=== PATIENT | male | born 1990 | race Caucasian/White ===

== ENCOUNTER 2020-09-17 13:06 | Emergency (ER) | payer SELFPAY ==
[2020-09-17 13:10] VITALS: BP 121/87; PULSE 94; RESP 18; TEMP 36.6; O2SAT 96; BMI 21.2
--- NOTE | 2020-09-17 13:16 | XR_ITS ---
PROCEDURE INFORMATION: Exam: XR Left Ankle Exam date and time: 09/17/2020 1:16 PM Age: 30 years old Clinical indication: Injury or trauma; Fall; Blunt trauma; Patient HX: PT twisted left ankle last night. ; Additional info: Pain TECHNIQUE: Imaging protocol: XR Left ankle. Views: 3 or more views. COMPARISON: No relevant prior studies available. FINDINGS: Bones/joints: Lateral malleolar soft tissue swelling; There is no evidence of acute fracture.There is no evidence of malalignment or dislocation. Soft tissues: See Bones/joints finding. IMPRESSION: There is no evidence of acute fracture.There is no evidence of malalignment or dislocation.
[2020-09-17 13:30] VITALS: BP 121/87; PULSE 94; RESP 18; TEMP 36.6; O2SAT 96; BMI 21.2
--- NOTE | 2020-09-17 14:02 | HMH.EDUTC ---
[facility] [place] Clinical Impression: Ankle sprain Qualifiers: Encounter type: initial encounter Involved ligament of ankle: unspecified ligament Laterality: left Qualified Code(s): S93.402A - Sprain of unspecified ligament of left ankle, initial encounter Disposition: Home, Self-Care Condition on Discharge: Good Instructions: DI for Ankle Sprain Additional Instructions: Weightbearing as tolerated rest Ice with cold pack for 20 minutes remove may repeat for comfort every hour Ifeanyi wrap for support and swelling no less in the shower. Be sure not too tight but not to lose either Elevate with ankle above your heart as much as possible to help reduce swelling and therefore pain Ibuprofen every 6 hours as needed for pain or inflammation. If needs something more you can take Tylenol every 4 hours as needed as long as her primary care has told he was okayed for you to take both. If improving any do not need to follow-up you can bring begin exercising 2-3 weeks after injury. Follow-up immediately if new or worsening symptoms or no noticeable improvement over the next 3-5 days. call ortho on onday Referrals: Pati Key DPM [Staff Physician] - Forms: Work/School Release Time of Disposition: 14:14 Medical Decision Making - Rei Inquiry Pt receiving controlled substance: No Vital Signs: 09/17/20 13:10 09/17/20 13:30 Temperature 97.9 F 97.9 F Temperature Source Oral Oral Pulse Rate [Right] 94 H 94 H Respiratory Rate 18 18 Blood Pressure [Right Arm] 121/87 121/87 Blood Pressure Mean [Right Arm] 98 98 Blood Pressure Source [Right Arm] Automatic Cuff Blood Pressure Position [Right Arm] Sitting 02 Sat by Pulse Oximetry 96 96 Oxygen Delivery Method Room Air Room Air [facility] [place] - General Chief complaint: Urgent [facility] Stated complaint: ao 09/16/20 poss broken Lt ankle Time Seen by Provider: 09/17/20 14:02 Mode of Arrival: Ambulatory Source of Information: Patient Limitations: No Limitations Description of Symptoms (Recalled from Triage Doc. by RN): PATIENT STATES HE WAS PLAYING TAG WITH HIS KIDS LAST NIGHT AND ROLLED HIS LEFT ANKLE HEENT Symptoms (Recalled from RN notes): No Resp Symptoms (Recalled from RN notes): No Skin Symptoms (Recalled from RN notes): No MS Symptoms (Recalled from RN notes): Yes Functional Status (Recalled from RN notes): WNL - History of Present Illness Provider Complaint: 30 yr old male presents for rt ankle pain. pt states he was plaing with kids when he rolled his ankle. - Related Data Previous Rx's Medication Instructions Recorded Cyclobenzaprine HCl [Flexeril 10mg 10 mg PO TID PRN #15 tab 09/02/17 tablet] Etodolac [Etodolac 200mg Cap] 200 mg PO Q6H PRN #20 cap 09/02/17 Allergies Allergy/AdvReac Type Severity Reaction Status Date / Time No Known Allergies Allergy Verified 09/02/17 14:30 - Worker's Comp Is this a Worker's Comp case?: No [facility] History - Hepatitis A Screen Drug use history?: No High risk sexual behaviors?: No History of sexually transmitted infection?: No Currently employed?: No Childcare worker?: No Do you have indoor plumbing?: Yes Do you have electricity?: Yes Attestation statement:: This patient has been screened for Hepatitis A risk factors. I have reviewed the patient's past medical history: Yes Medical History: Denies:: Cancer, Diabetes Mellitus Type 1, Diabetes Mellitus Type 2, MRSA Amputation: No Fractures: No - Social History Smoking Status: Current every day smoker Tobacco Type: cigarettes Alcohol Intake: never ROS Obtained: Yes Systems reviewed as appropriate & no additional complaints - Constitutional Constitutional: Reports system reviewed and no additional complaints, except as docu, Denies body ache, Denies fatigue - Eyes Eyes: Reports system reviewed and no additional complaints, except as docu, Denies blurry vision - ENT Ears, Nose, Mouth, and Throat: Reports system reviewed and no additional complain
[2020-09-17 14:15] VITALS: BP 121/87; PULSE 94; RESP 18; TEMP 36.6; O2SAT 96
== END 2020-09-17 14:22 | disposition home or self-care (01) ==
PROVIDERS: Emergency Provider Nurse Practitioner Family
DX: S93.402A Sprain of unspecified ligament of left ankle, initial encounter (principal); X50.1XXA Overexertion from prolonged static or awkward postures, initial encounter; F17.210 Nicotine dependence, cigarettes, uncomplicated
CPT/HCPCS: 73610; 99202; G0463

== ENCOUNTER 2022-03-24 18:43 | Emergency (ER) | payer SELFPAY ==
[2022-03-24 19:00] VITALS: BP 147/90; PULSE 112; RESP 20; TEMP 36.7; O2SAT 99; BMI 19.8
--- NOTE | 2022-03-24 19:07 | EXP.UTC ---
Discharge Plan Disposition Patient Disposition: Home, Self-Care Condition: Good Prescriptions Prescriptions: New ondansetron 4 mg Tablet,Disintegrating 4 mg PO Q8H PRN (Reason: Nausea) Qty: 12 0RF No Action cyclobenzaprine 10 MG tablet 10 mg PO TID PRN (Reason: Muscle Spasm) Qty: 15 0RF etodolac 200 MG capsule 200 mg PO Q6H PRN (Reason: Moderate Pain) Qty: 20 0RF Referrals Follow up/Referrals: Provider,Referral, MD [Primary Care Provider] - See instructions Activity Restrictions/Add. Instructions Additional Instructions/Restrictions: Drink plenty of fluids. Take tylenol or ibuprofen for pain or fever. Take the medications as directed. Follow up with your regular doctor. GO TO THE ER FOR ANY WORSENING SYMPTOMS Clinical Impressions Clinical Impression: Gastroenteritis Stand Alone Forms Stand Alone Forms: Work/School Release Instructions Patient Instructions: DI for Viral Gastroenteritis -- Adult, Ondansetron Discharge ED Provider: [facility] General Stated complaint: vomiting, diarrhea Time Seen by Provider: 03/24/22 19:07 History of Present Illness Provider Complaint: He states that for the past 1 day he has had n/v/d. He denies abdominal pain. Others in his family have stomach viruses at this time. Related Data Previous Rx's Medication Instructions Recorded cyclobenzaprine 10 mg tablet 10 mg PO TID PRN Muscle Spasm #15 09/02/17 tabs etodolac 200 mg capsule 200 mg PO Q6H PRN Moderate Pain 09/02/17 #20 caps ondansetron 4 mg disintegrating 4 mg PO Q8H PRN Nausea #12 tabs 03/24/22 tablet Allergies Allergy/AdvReac Type Severity Reaction Status Date / Time No Known Allergies Allergy Verified 03/24/22 19:26 [facility] Disclaimer: The information contained in this section may have been updated after the patient was seen, as this information can be updated by other users. Social History Smoking Status: Current every day smoker tobacco type: cigarettes alcohol intake: never current occupational status: employed Travel in the last 8 weeks: None ROS Obtained: Yes All systems reviewed & no additional complaints except as documented Constitutional Constitutional: Denies chills, Denies fever(s) and Reports poor appetite ENT Ears, Nose, Mouth, and Throat: Denies dizziness and Denies sore throat Cardiovascular Cardiovascular: Denies dyspnea Respiratory Respiratory: Denies chest congestion, Denies cough and Denies dyspnea Gastrointestinal Gastrointestingal: Reports as per HPI Genitourinary Male Genitourinary: Denies hematuria, Denies urinary frequency, Denies urinary hesitancy, Denies urinary incontinence and Denies urinary urgency Musculoskeletal Musculoskeletal: Denies arthralgias Integumentary/Breasts Skin/Breast: Denies rash Neurologic Neurologic: Denies dizziness Physical Exam General General appearance: alert and in no apparent distress Head Head exam: atraumatic and normocephalic Eye Eye exam: Present normal appearance, PERRL and EOMI ENT ENT exam: Present normal exam, normal oropharynx, mucous membranes moist, TM's normal bilaterally and normal external ear exam Neck Neck exam: Present normal inspection, full ROM and trachea midline; Absent tenderness, meningismus or lymphadenopathy Chest Chest inspection: Present normal inspection and symmetric chest wall rise; Absent tenderness, rash or abscess Respiratory Respiratory exam: Present normal lung sounds bilaterally; Absent respiratory distress, wheezes or stridor Cardiovascular Cardiovascular exam: Present regular rate and normal rhythm; Absent irregular rhythm, systolic murmur, diastolic murmur or JVD Abdominal Exam Abdominal exam: Present soft and hyperactive bowel sounds; Absent distention, tenderness, guarding, rebound, rigidity, psoas sign, obturator sign, heel tap sign, Moulton's sign, Rovsing's sign or tenderness at McBurney's
[2022-03-24 19:43] VITALS: BP 147/90; PULSE 112; RESP 20; TEMP 36.7; O2SAT 99
== END 2022-03-24 19:43 | disposition home or self-care (01) ==
PROVIDERS: Emergency Provider Nurse Practitioner Family
DX: K52.9 Noninfective gastroenteritis and colitis, unspecified (principal)
CPT/HCPCS: 99212; 99213; G0463

== ENCOUNTER 2024-02-02 23:57 | Emergency (ER) | payer SELFPAY ==
[2024-02-03] VITALS: BP 155/105; PULSE 92; RESP 16; TEMP 36.4; O2SAT 97; BMI 22.1
--- NOTE | 2024-02-03 00:04 | HMH.EDGENADL ---
Discharge Plan Disposition Patient Disposition: Home, Self-Care Condition: Good Prescriptions Prescriptions: No Action cyclobenzaprine 10 MG tablet 10 mg PO TID PRN (Reason: Muscle Spasm) Qty: 15 0RF etodolac 200 MG capsule 200 mg PO Q6H PRN (Reason: Moderate Pain) Qty: 20 0RF ondansetron 4 mg Tablet,Disintegrating 4 mg PO Q8H PRN (Reason: Nausea) Qty: 12 0RF Referrals Follow up/Referrals: Provider,Referral, MD [Primary Care Provider] - See instructions Activity Restrictions/Add. Instructions Additional Instructions/Restrictions: Please follow-up with your primary care provider. Please return to the emergency department if you develop any new or worsening symptoms or become concerned for your health. Please take Tylenol and ibuprofen as needed for pain. Clinical Impressions Clinical Impression: Fall Print Language Print Language: Danish Discharge ED Provider: Karsten Hernandez General Adult HPI General Chief complaint: Fall Stated complaint: fall, nail puncture in back Time Seen by Provider: 02/03/24 00:04 History of Present Illness HPI narrative: 33-year-old male without significant past medical history presents for injury to his back. He was getting freaky when he fell backwards into a wall where they were a couple of nails protruding. He scraped his back and is here for evaluation. He reports he has some pain with deep breaths. He reports he is up-to-date on his tetanus. Related Data Previous Rx's ?Medication ?Instructions ?Recorded cyclobenzaprine 10 mg tablet 10 mg PO TID PRN Muscle Spasm #15 09/02/17 tabs etodolac 200 mg capsule 200 mg PO Q6H PRN Moderate Pain 09/02/17 #20 caps ondansetron 4 mg disintegrating 4 mg PO Q8H PRN Nausea #12 tabs 03/24/22 tablet Allergies Allergy/AdvReac Type Severity Reaction Status Date / Time No Known Allergies Allergy Verified 03/24/22 19:26 [facility] Disclaimer: The information contained in this section may have been updated after the patient was seen, as this information can be updated by other users. Social History (Updated 03/24/22 @ 21:05 by eBrtram العلي APRN) Smoking Status: Current every day smoker tobacco type: cigarettes alcohol intake: never current occupational status: employed Travel in the last 8 weeks: None Have you lived/traveled outside [place] in past 30 days?: No Contact w/someone who lives/traveled outside [place] past 30 days?: No Exposure to someone with infectious disease in past 14 days?: No Do you have a fever (greater than 100.4 F or 38 C)?: No Have you tested positive for COVID-19: No Exposed to someone with COVID-19 in past 14 days?: No Do you have a sore throat?: No Do you have a cough?: No Do you have any weakness?: No Do you have any diarrhea?: No Are you experiencing any unusual bleeding?: No Do you have any muscle aches/pain?: No Do you have any abdominal pain?: No Are you experiencing loss of taste or smell?: No ROS Obtained: Yes All systems reviewed & no additional complaints except as documented Physical Exam General General appearance: alert and in no apparent distress Head Head exam: atraumatic and normocephalic Eye Eye exam: Present normal appearance, PERRL and EOMI ENT ENT exam: Present normal oropharynx and normal external ear exam Neck Neck exam: Present normal inspection and full ROM Chest Chest inspection: Present normal inspection and symmetric chest wall rise; Absent tenderness Respiratory Respiratory exam: Present normal lung sounds bilaterally; Absent respiratory distress Cardiovascular Cardiovascular exam: Present regular rate and normal rhythm Abdominal Exam Abdominal exam: Present soft; Absent distention, tenderness or guarding Extremities Exam Extremities exam: Present normal inspection; Absent edema or joint swelling Back Exam Back exam: Present tenderness (Abrasions to the right side of the back, no puncture wounds) Neurological Exam Neurological exam: Present alert and oriented X3; Absent motor sensory deficit Psychiatric Psychiatric exam: Present normal affect and normal mood Skin Skin exam: Present warm, dry and normal color Lymphatic Lymphatic Findings: no adenopathy Medical Decision Making Medical Records Medical records reviewed: Yes I reviewed the patient's medical records. Screening: Per USPSTF and CDC recommendations, given the prevalence of disease in our region, it is our hospital?s policy to screen for HIV and viral Hepatitis for all patients aged 18 and over and those with ongoing risk factors. Rei Inquiry Pt receiving controlled substance: No Rei was queried for this patient: No Vital Signs: 02/03/24 00:00 02/03/24 00:13 02/03/24 00:30 Temperature 97.6 F Temperature Source Oral Pulse Rate 100 H 60 Pulse Rate [Right] 92 H Respiratory Rate 16 Blood Pressure 155/105 H Blood Pressure [Right Arm] 155/105 H Blood Pressure Mean [Right Arm] 121 Blood Pressure Source Blood Pressure Position Blood Pressure Position [Right Arm] Supine 02 Sat by Pulse Oximetry 97 97 93 L Oxygen Delivery Method Room Air 02/03/24 00:53 Temperature 98.1 F Temperature Source Oral Pulse Rate 74 Pulse Rate [Right] Respiratory Rate 14 Blood Pressure 142/78 H Blood Pressure [Right Arm] Blood Pressure Mean [Right Arm] Blood Pressure Source Automatic Cuff Blood Pressure Position Supine Blood Pressure Position [Right Arm] 02 Sat by Pulse Oximetry Oxygen Delivery Method Room Air Lab Data Lab results reviewed: Yes I reviewed the patient's lab results. Orders (Tests/Meds): ED MEDICATIONS Discontinued Medications Generic Name Dose Route Start Last Admin Trade Name Freq PRN Reason Stop Dose Admin Acetaminophen 1,000 mg 02/03/24 00:09 12 00:14 Acetaminophen 500mg Tab PO 02/03/24 00:10 1,000 mg ONCE ONE Administration ORDERS Category Date Time Status CXR 2 view (NOT portable) [XR chest 2V] Stat Exams 02/03/24 00:09 Completed Medical Decision Narrative: 33-year-old male without significant past medical history presents after falling into a wall where there were some nails protruding and scraping his back. History was obtained via interactive discussion with patient family. On arrival, patient is [afebrile, hemodynamically stable, satting appropriately, alert, oriented x4, GCS 15], moving all extremities spontaneously. Full physical exam performed and significant for abrasions to the back, no puncture wound. Differential includes but is not limited to fracture, laceration, pneumothorax. Patient was given Tylenol for symptomatic management and correction of underlying abnormalities. Workup initiated including 2 view chest x-ray. On re-evaluation, patient [remains afebrile, HD stable.] Imaging independently interpreted by me and significant for clear lungs bilaterally without evidence of pneumothorax or rib fracture. See radiology read for full review of final results. No evidence of emergent pathology at this time. Patient discharged in stable condition with return precautions. Patient up-to-date on tetanus. Procedures Risk/Benefits of Procedure(s) Were Explained: Yes Critical Care Critical Care Time Critical Care Time: No
--- NOTE | 2024-02-03 00:09 | XR_ITS ---
PROCEDURE INFORMATION: Exam: XR Chest Exam date and time: 02/03/2024 12:17 AM Age: 33 years old Clinical indication: Injury or trauma; Other: Fall, R posterior rib pain TECHNIQUE: Imaging protocol: Radiologic exam of the chest. Views: 2 views. COMPARISON: No relevant prior studies available. FINDINGS: Lungs: There is a faintly calcified, approximately 4 mm nodule in the right lower lobe of the lung which could represent a small calcified granuloma. Pleural spaces: Unremarkable. No pleural effusion. No pneumothorax. Heart/Mediastinum: Unremarkable. No cardiomegaly. Bones/joints: Unremarkable. IMPRESSION: No evidence of acute radiographic findings in the chest
[2024-02-03 00:13] VITALS: BP 155/105; PULSE 100; O2SAT 97
[2024-02-03] MEDS: ACETAMINOPHEN 500MG TAB 1000 MG PO (00:14)
[2024-02-03 00:30] VITALS: PULSE 60; O2SAT 93
[2024-02-03 00:53] VITALS: BP 142/78; PULSE 74; RESP 14; TEMP 36.7; O2SAT 98
== END 2024-02-03 00:59 | disposition home or self-care (01) ==
PROVIDERS: Emergency Provider Emergency Medicine
DX: M54.9 Dorsalgia, unspecified (principal); W19.XXXA Unspecified fall, initial encounter; Y93.89 Activity, other specified; Y92.008 Other place in unspecified non-institutional (private) residence as the place of occurrence of the external cause
CPT/HCPCS: 71046; 99283

== ENCOUNTER 2024-12-14 08:09 | Emergency (ER) | payer SELFPAY ==
[2024-12-14] VITALS (8 sets, daily range): BP systolic 111–143; BP diastolic 77–101; PULSE 84–108; RESP 16–20; TEMP 36.6–36.8; O2SAT 97–100; BMI 21.2
--- NOTE | 2024-12-14 08:22 | ED_ITS ---
Discharge Plan Disposition Patient Disposition: Home, Self-Care Condition: Good Prescriptions Prescriptions: New amoxicillin-pot clavulanate [Augmentin] 500-125 mg tablet 1 tab PO BID Qty: 14 0RF No Action cyclobenzaprine 10 MG tablet 10 mg PO TID PRN (Reason: Muscle Spasm) Qty: 15 0RF etodolac 200 MG capsule 200 mg PO Q6H PRN (Reason: Moderate Pain) Qty: 20 0RF ondansetron 4 mg Tablet,Disintegrating 4 mg PO Q8H PRN (Reason: Nausea) Qty: 12 0RF Referrals Follow up/Referrals: Provider,Referral, MD [Primary Care Provider, Medical] - See instructions Referral Note: establish, fu cellulitis Activity Restrictions/Add. Instructions Additional Instructions/Restrictions: You were seen in the emergency department for swelling of the face. We believe this is due to cellulitis. Please take Augmentin for the next week. If symptoms worsen, please return to the emergency department or the dentist office. Please follow-up with your primary care provider or your dentist in 3 to 5 days to ensure that symptoms are improving. Clinical Impressions Clinical Impression: Cellulitis of face Instructions Patient Instructions: Cellulitis Print Language Print Language: [place] Discharge ED Provider: John Mendez General Adult HPI General Chief complaint: PAIN Stated complaint: Left side facial swelling & pain Time Seen by Provider: 12/14/24 08:22 History of Present Illness HPI narrative: This patient is a 34-year-old male with past medical history of IV drug use who presents to the emergency department with swelling and jaw pain. Symptoms began yesterday with a small lump on the jaw on the left side, he noticed significantly increased swelling this morning. He has pain with range of motion of the jaw and pain with palpation of the jaw and lip. He is able to move the muscles of his face normally and reports normal sensation. Patient currently reports no fever, chills, night sweats. He has all the teeth on his lower jaw removed, upper teeth intact. Swelling appears confined to the lip and cheek Related Data Previous Rx's ?Medication ?Instructions ?Recorded cyclobenzaprine 10 mg tablet 10 mg PO TID PRN Muscle S pasm #15 09/02/17 tabs etodolac 200 mg capsule 200 mg PO Q6H PRN Moderate P ain 09/02/17 #20 caps ondansetron 4 mg disintegrating 4 mg PO Q8H PRN Nausea #12 tabs 03/24/22 tablet amoxicillin 500 mg-potassium 1 tab PO BID #14 tabs 06/04 clavulanate 125 mg tablet (Augmentin) Allergies Allergy/AdvReac Type Severity Reaction Status Date / Time No Known Allergies Allergy Verified 03/24/22 19:26 [facility] Disclaimer: The information contained in this section may have been updated after the patient was seen, as this information can be updated by other users. Social History (Updated 03/24/22 @ 21:05 by Bertram العلي APRN) Smoking Status: Current every day smoker tobacco type: cigarettes alcohol intake: never current occupational status: employed Travel in the last 8 weeks?: None Have you lived/traveled outside [place] in past 30 days?: No Contact w/someone who lives/traveled outside [place] past 30 days?: No Exposure to someone with infectious disease in past 14 days?: No Do you have a fever (greater than 100.4 F or 38 C)?: No Have you tested positive for COVID-19?: No Exposed to someone with COVID-19 in past 14 days?: No Do you have a sore throat?: No Do you have a cough?: No Do you have any weakness?: No Do you have any diarrhea?: No Are you experiencing any unusual bleeding?: No Do you have any muscle aches/pain?: No Do you have any abdominal pain?: No Are you experiencing loss of taste or smell?: No ROS Obtained: Yes All systems reviewed & no additional complaints except as documented Physical Exam General General appearance: alert and in no apparent distress Head Head exam: atraumatic and normocephalic Eye Eye exam: Present normal appearance, PERRL and EOMI ENT ENT exam: Present normal exam and normal external ear exam Neck Neck exam: Present normal inspection, full ROM and trachea midline Chest Chest inspection: Present normal inspection and symmetric chest wall rise; Absent tenderness Respiratory Respiratory exam: Absent respiratory distress Cardiovascular Cardiovascular exam: Present regular rate, normal rhythm and other (appears warm and well perfused) Abdominal Exam Abdominal exam: Absent distention or tenderness exam: Absent deferred Extremities Exam Extremities exam: Present normal inspection and full ROM Neurological Exam Neurological exam: Present alert and oriented X3 Psychiatric Psychiatric exam: Present normal affect Skin Skin exam: Present warm and dry Medical Decision Making Medical Records Medical records reviewed: Yes I reviewed the patient's medical records. Screening: Per USPSTF and CDC recommendations, given the prevalence of disease in our region, it is our hospital?s policy to screen for HIV and viral Hepatitis for all patients aged 18 and over and those with ongoing risk factors. Rei Inquiry Pt receiving controlled substance: No Rei was queried for this patient: No Vital Signs: 12/14/24 08:11 12/14/24 08:15 12/14/24 08:31 Temperature 98.3 F Temperature Source Oral Pulse Rate 108 H 107 H Pulse Rate [Left Radial] 105 H Respiratory Rate 20 Blood Pressure 137/97 H 143/91 H Blood Pressure [Right Arm] 137/97 H Blood Pressure Mean [Right Arm] 110 Blood Pressure Source Blood Pressure Position 02 Sat by Pulse Oximetry 100 97 97 Oxygen Delivery Method Room Air Room Air Room Air 12/14/24 09:00 12/14/24 09:30 12/14/24 10:00 Temperature Temperature Source Pulse Rate 100 H 86 84 Pulse Rate [Left Radial] Respiratory Rate Blood Pressure 130/90 121/101 H 119/89 Blood Pressure [Right Arm] Blood Pressure Mean [Right Arm] Blood Pressure Source Blood Pressure Position 02 Sat by Pulse Oximetry 97 98 97 Oxygen Delivery Method Room Air Room Air Room Air 12/14/24 10:30 12/14/24 11:19 Temperature 98 F Temperature Source Oral Pulse Rate 89 86 Pulse Rate [Left Radial] Respiratory Rate 16 Blood Pressure 111/77 136/86 Blood Pressure [Right Arm] Blood Pressure Mean [Right Arm] Blood Pressure Source Automatic Cuff Blood Pressure Position Sitting 02 Sat by Pulse Oximetry 98 Oxygen Delivery Method Room Air Room Air Lab Data Lab results reviewed: Yes I reviewed the patient's lab results. Lab Results 12/14/24 08:40: WBC 10.3, RBC 5.44, Hgb 16.1, Hct 47.8, MCV 87.9, MCH 29.6, MCHC 33.7, RDW 13.7, Plt Count 284, MPV 9.8, Neut % (Auto) 59.8, Lymph % (Auto) 28.9, [place] % (Auto) 7.5, Eos % (Auto) 2.6, Baso % (Auto) 0.7, Neut # (Auto) 6.1, Lymph # (Auto) 3.0, [place] # (Auto) 0.8, Eos # (Auto) 0.3, Baso # (Auto) 0.1, Sodium 140, Potassium 5.0, Chloride 100, Carbon Dioxide 32 H, Anion Gap 13.0, BUN 6 L, Creatinine 0.80, Estimated Creat Clear 119, Estimated GFR 112, Est GFR ( Amer) 136, Glucose 97, Calcium 9.1, Total Bilirubin 0.5, AST 33, ALT 44, Alkaline Phosphatase 87, C-Reactive Protein < 0.3, Total Protein 7.9, Albumin 5.4 H, Globulin 2.5, Albumin/Globulin Ratio 2.2 H 12/14/24 08:40 12/14/24 08:40 Orders (Tests/Meds): ED MEDICATIONS Discontinued Medications Generic Name Dose Route Start Last Admin Trade Name Freq PRN Reason Stop Dose Admin Iopamidol 75 ml 12/14/24 09:15 12/14/24 09:16 Iopamidol-370 (76%);100ml Bottle IV 12/14/24 09:16 75 ml ONCE ONE Administration Sodium Chloride 10 ml 12/14/24 09:15 12/14/24 09:15 Sodium Chloride 0.9% 10ml Syr (Rad Only) IV 12/14/24 09:16 10 ml ONCE ONE Administration ORDERS Category Date Time Status CT facial bones w con Stat Cat Scan 12/14/24 08:26 Completed CBC w/Auto Diff [Complete Blood Count Auto Diff] Stat Lab 12/14/24 08:40 Completed CMP [Comprehensive Metabolic Panel] Stat Lab 12/14/24 08:40 Completed CRP [C-Reactive Protein] Stat Lab 12/14/24 08:40 Completed Medical Decision Narrative: MDM In summary, this 34-year-old man presents to the emergency department today with facial swelling. Initial evaluation the patient uncomfortable, hemodynamically stable. Differential diagnosis includes but is not limited to cellulitis, abscess, osteomyelitis. Based on these concerns, I ordered labs and imaging. Labs personally reviewed and interpreted demonstrate mild leukocytosis, no significant anemia, elevated inflammatory marker. CT imaging personally interpreted by me demonstrate mild inflammatory changes, no concern for abscess, most likely representing cellulitis. Given the very reassuring imaging workup I felt is appropriate to discharge the patient home on oral antibiotics. I recommended that he follow-up with dentistry outpatients to have his swelling monitored. Additionally I referred him to a primary care provider to establish care. The patient was comfortable with this plan and verbalized understanding of return precautions. Critical Care Critical Care Time Critical Care Time: No
--- NOTE | 2024-12-14 08:26 | CT_ITS ---
FINAL REPORT CLINICAL HISTORY: swelling left lower mandible- abscess vs celluliti COMPARISON: None FINDINGS: CT SINUSES TECHNIQUE: Thin section axial CT with coronal and sagittal reconstructions were obtained after the administration of IV contrast. This study was performed with techniques to keep radiation doses as low as reasonably achievable, (ALARA). Individualized dose reduction techniques using automated exposure control or adjustment of mA and/or kV according to the patient's size were employed. Mild soft tissue edema along the left angle of the mandible. No evidence of abscess. There are no lesions in the floor of the mouth. Parotid and submandibular salivary glands are unremarkable. The nasopharynx, oropharynx, and epiglottis are unremarkable. The paranasal sinuses and mastoid air cells are clear. There is no acute osseous abnormality. No lymphadenopathy. IMPRESSION: Mild soft tissue edema along the left angle of the mandible. No evidence of abscess. Findings favor cellulitis. Reviewed, Interpreted and Dictated by Aurora Newby MD Transcribed by Susan Moran Authenticated and [facility]
[2024-12-14 08:47] LABS: Hematocrit 47.8 % (42.0-52.0); Hemoglobin 16.1 g/dL (14.1-18.0); Immature Granulocytes % 0.5 %; Mean Corpuscular HGB Conc 33.7 g/dL (31.8-35.4); Mean Corpuscular Hemoglobin 29.6 pg (27.0-31.2); Mean Corpuscular Volume 87.9 fl (80-94); Nucleated Red Blood Cells % 0 %; Platelet Count 284 K/mm3 (142-424); Red Blood Count 5.44 M/mm3 (4.60-6.20); Red Cell Distribution Width-SD 44.0 fL; White Blood Count 10.3 K/mm3 (4.8-10.8)
[2024-12-14 08:54] LABS: Albumin Level 5.4 g/dl (3.5-5.0); Chloride 100 mmol/L (98-107); Potassium 5.0 mmoL/L (3.5-5.1); Sodium 140 mmol/L (136-145)
[2024-12-14 08:56] LABS: Alanine Aminotransferase 44 U/L (12-78); Anion Gap 13.0 mEq/L (5-15); Aspartate Amino Transferase 33 U/L (17-59); Blood Urea Nitrogen 6 mg/dl (9-20); Carbon Dioxide 32 mmol/L (22.0-30.0); Creatinine Clearance Estimated 119 mL/min (50-200); Creatinine,Serum 0.80 mg/dl (0.66-1.25); Estimated Glomerular Filt Rate 112 ml/min (>60); GFR (African American) 136 ML/MIN (>60)
[2024-12-14 08:57] LABS: Albumin/Globulin Ratio 2.2 (1.1-1.8); Alkaline Phosphatase 87 U/L (38-126); Bilirubin,Total 0.5 mg/dl (0.2-1.3); Calcium 9.1 mg/dl (8.4-10.2); Globulin 2.5 g/dL (1.3-3.2); Glucose 97 mg/dl (74-100); Total Protein,Serum 7.9 g/dl (6.3-8.2)
[2024-12-14] MEDS: SODIUM CHLORIDE 0.9% 10ML SYR (RAD ONLY) 10 ML IV (09:15)
[2024-12-14] MEDS: IOPAMIDOL-370 (76%);100ML BOTTLE 75 ML IV (09:16)
[2024-12-14 09:36] LABS: C-Reactive Protein < 0.3 mg/L (0-4)
== END 2024-12-14 11:20 | disposition home or self-care (01) ==
PROVIDERS: Emergency Provider Student in an Organized Health Care Education/Training Program
DX: L03.211 Cellulitis of face (principal); R22.0 Localized swelling, mass and lump, head
CPT/HCPCS: 70487; 80053; 85025; 86140; 99284; Q9967